=== PATIENT | female | born 1995 | race Hispanic/Latino ===

== ENCOUNTER 2019-12-08 16:56 | Emergency (ER) | payer SELFPAY ==
--- NOTE | 2019-12-08 19:22 | ER ---
Nurse's Notes [facility] Name: Luz Marina Babin Age: 24 yrs Sex: Female : 1995 Arrival Date: 12/08/2019 Time: 17:07 Bed 4 Private MD: None, None Diagnosis: Right subconjunctival hemorrhage Presentation: 12/07 17:09 Chief complaint: Patient states: Right eye redness for 5 days getting g progressively ll1 worse. [place] for 2 days. No fever. Coronavirus screen: Proceed with normal triage. Patient denies a cough. Patient denies shortness of breath or difficulty breathing. Patient denies measured and/or subjective temperature greater than 100.4F prior to today's visit. Patient denies travel on a cruise ship or to a country the [facility] currently lists as an affected area. Patient denies contact with known and/or suspected case of COVID-19. Ebola Screen: Patient denies travel to an Ebola-affected area in the 21 days before illness onset. Initial Sepsis Screen: Does the patient meet any 2 criteria? No. Patient's initial sepsis screen is negative. Risk Assessment: Do you want to hurt yourself or someone else? Patient reports no desire to harm self or others. Onset of symptoms was December 04, 2019. 17:09 Method Of Arrival: Ambulatory ll1 17:09 Acuity: SLOAN 3 ll1 19:18 Initial Sepsis Screen: Does the patient have a suspected source of infection? No. mg2 Patient's initial sepsis screen is negative. Triage Assessment: 19:17 General: Appears in no apparent distress. comfortable, Behavior is calm, cooperative, rr5 appropriate for age. 19:17 Headache History: Denies prior headaches. Pain: Pain currently is 0 out of 10 on a pain rr5 scale. Pain began gradually, Also complains of no other associated symptoms. 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 - Social history:: Smoking status: Patient denies any tobacco usage or history of. Patient/guardian denies using alcohol, street drugs, tobacco products. Screenin:18 Abuse screen: Denies threats or abuse. Denies injuries from another. Nutritional mg2 screening: No deficits noted. Tuberculosis screening: No symptoms or risk factors identified. Fall Risk None identified. Assessment: 19:17 General: Appears in no apparent distress. comfortable, Behavior is calm, cooperative. mg2 Pain: Denies pain. Neuro: Level of Consciousness is awake, alert, obeys commands, Oriented to person, place, time, situation. Cardiovascular: Capillary refill < 3 seconds Patient's skin is warm and dry. Respiratory: Airway is patent Respiratory effort is even, unlabored, Respiratory pattern is regular, symmetrical. GI: No signs and/or symptoms were reported involving the gastrointestinal system. : No signs and/or symptoms were reported regarding the genitourinary system. EENT: Eyes right eye redness/ bleed noted. Derm: Skin is intact, is healthy with good turgor, Skin is pink, warm \T\ dry. normal. Musculoskeletal: Circulation, motion, and sensation intact. Capillary refill < 3 seconds. 19:33 Reassessment: Patient appears in no apparent distress at this time. Patient is alert, rr5 oriented x 3, equal unlabored respirations, skin warm/dry/pink. discharge instruction given and explained without complaints made. Vital Signs: 17:09 BP 140 / 95; Pulse 84; Resp 16; Temp 98.6; Pulse Ox 100% ; Pain 1/10; ll1 Visual Acuity: 19:16 Left Eye Visual acuity 20/20, ; Right Eye Visual acuity 20/20, ; Both Eyes Visual mg2 acuity 20/20; Without Lenses; ED Course: 17:07 Patient arrived in ED. mr 17:08 None, None is Private Physician. mr 17:10 Triage completed. ll1 17:11 Arm band placed on Patient notified of wait time. EKG completed in triage. Results ll1 shown to MD. EKG completed in triage. Results shown to MD. 18:28 Lauren Gifford FNP-C is PHCP. kb 18:28 Roberto Luz MD is Attending Physician. kb 18:42 Latisha Holder, LUIS ANTONIO is Primary Nurse. iw 19:02 Franklyn Dowling MD is Attending Physician. pkl 19:16 No provider procedures requiring assistance completed. Patient did not have IV access mg2 during this emergency room visit. 19:18 Patient has correct armband on for positive identification. mg2 19:20 Leslye Gallo MD is Referral Physician. pkl Administered Medications: No medications were administered Outcome: 19:21 Discharge ordered by . pkl 19:33 Discharged to home ambulatory. rr5 19:33 Condition: stable 19:33 Discharge instructions given to patient, Instructed on discharge instructions, follow up and referral plans. medication usage, Demonstrated understanding of instructions, follow-up care. 19:35 Patient left the ED. rr5 Signatures: Lauren Gifford, SWAPNIL TENORIOP-Franklyn Orellana MD MD pkl Katie Godinez Latisha Holder, RN LUIS ANTONIO iw Luke Dasilva RN RN mg2 Hermelindo Malhotra, RN RN rr5 Roderick Walden RN RN ll1
--- NOTE | 2019-12-08 19:22 | EDPHYS ---
Physician Documentation [facility] Name: Luz Marina Babin Age: 24 yrs Sex: Female : 1995 Arrival Date: 12/08/2019 Time: 17:07 Bed 4 Private MD: None, None ED Physician Franklyn Dowling HPI: 12/07 19:13 This 24 yrs old Female presents to ER via Ambulatory with complaints of pkl Redness of Eye, Headache. 19:13 The patient is experiencing redness, to the right eye, caused by an unknown mechanism. pkl Onset: The symptoms/episode began/occurred 5 day(s) ago. Associated signs and symptoms: Pertinent positives: None. 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 - Social history:: Smoking status: Patient denies any tobacco usage or history of. Patient/guardian denies using alcohol, street drugs, tobacco products. ROS: 19:13 ENT: Negative for injury, pain, and discharge. pkl 19:13 Eyes: Positive for redness, of the right eye, Negative for blurry vision, pain, vision loss, visual disturbance. 19:13 Neck: Negative for stiffness. 19:13 Cardiovascular: Negative for chest pain. 19:13 Respiratory: Negative for cough, shortness of breath. 19:13 Abdomen/GI: Negative for abdominal pain, nausea, vomiting, and diarrhea. 19:13 Back: Negative for acute changes. 19:13 : Negative for urinary symptoms. 19:13 MS/extremity: Negative for acute changes. 19:13 Skin: Negative for rash. 19:13 Neuro: Negative for altered mental status, loss of consciousness. Exam: 19:17 Visual Acuity: Visual acuity is within normal limits. pkl 19:17 Head/Face: Normocephalic, atraumatic. 19:17 Head/face: 19:17 Head/face: Exam is negative for acute changes. 19:17 Eyes: Periorbital structures: appear normal, Pupils: no acute changes, Extraocular movements: intact throughout, Conjunctiva: subconjunctival hemorrhage(s), seen in the right eye, Corneas: are normal. 19:17 Neck: Exam negative for nuchal rigidity. 19:17 Chest/axilla: Exam negative for acute changes. 19:17 Cardiovascular: Rate: normal, Rhythm: regular. 19:17 Respiratory: the patient does not display signs of respiratory distress, Respirations: normal, Breath sounds: are clear throughout. 19:17 Abdomen/GI: Exam negative for acute changes. 19:17 Back: Exam negative for acute changes. 19:17 : Exam negative for acute changes. 19:17 Musculoskeletal/extremity: Exam is negative for acute changes. 19:17 Skin: Exam negative for rash. 19:17 Neuro: Orientation: is normal, Mentation: is normal, Cranial nerves: grossly normal, Motor: is normal. Vital Signs: 17:09 BP 140 / 95; Pulse 84; Resp 16; Temp 98.6; Pulse Ox 100% ; Pain 1/10; ll1 Visual Acuity: 19:16 Left Eye Visual acuity 20/20, ; Right Eye Visual acuity 20/20, ; Both Eyes Visual mg2 acuity 20/20; Without Lenses; MDM: 18:28 Patient medically screened. 19:17 Data reviewed: vital signs, nurses notes. pkl 19:21 Patient medically screened. pkl 12/07 19:17 Order name: Visual Acuity; Complete Time: 19:19 pkl Administered Medications: No medications were administered Disposition: 12/08/19 19:21 Discharged to Home. Impression: Right subconjunctival hemorrhage. - Condition is Stable. - Medication Reconciliation Form, Thank You Letter, Antibiotic Education, Prescription Opioid Use form. - Follow up: Leslye Gallo MD; When: 2 - 3 days; Reason: Re-evaluation by your physician. - Problem is new. - Symptoms are unchanged. Signatures: Lauren Gifford, SEX WORKER OR ESCORT-C SEX WORKER OR ESCORT-CkFranklyn Brunson MD MD pkl Hermelindo Malhotra, RN RN rr5 Roderick Walden RN RN ll1 Corrections: (The following items were deleted from the chart) 19:35 19:21 12/08/2019 19:21 Discharged to Home. Impression: Right subconjunctival rr5 hemorrhage. Condition is Stable. Forms are Medication Reconciliation Form, Thank You Letter, Antibiotic Education, Prescription Opioid Use. Follow up: Leslye Gallo; When: 2 - 3 days; Reason: Re-evaluation by your physician. Problem is new. Symptoms are unchanged. pkl
[2019-12-08 19:45] VITALS: BP 140/95; TEMP 98.6; O2SAT 100
== END 2019-12-08 19:35 | disposition home or self-care (01) ==
LOC: ER 16:56
DX: H11.31 Conjunctival hemorrhage, right eye (principal)
CPT/HCPCS: 99282